=== PATIENT | female | born 1970 | race Caucasian/White ===

== ENCOUNTER 2017-04-30 07:32 | Emergency (ER) | payer OTHER ==
[~2017-04-30] VITALS: Ht 149.9 cm; Wt 59.0 kg
--- NOTE | ~2017-04-30 | CT4 ---
[facility] A Service of [facility] & [facility] RADIOLOGY TEXT RESULTS PATIENT: SABAS NIETO LOCATION: [facility] : 72 UNIT #: [id number] AGE: [address]: Yari Encinas APRN SEX: F ORDER DR: [id number] [facility] [address] [place], [place] [address] [id number] E MR#: [id number] Acc #: [id number] NAME: SABAS NIETO : 1970 SEX: F STUDY DATE/TIME: 04/30/2017 11:02 UNIT: [facility] ROOM: STUDY DESCRIPTION: CT Abd and Pelv Wo Cont Attending Physician: Yari Encinas A.P.R.N. Ordering Physician: Dorian Spencer M.D. Primary Care Physician: Mk Pan M.D. MEDICAL IMAGING REPORT This report is preliminary unless electronic signature is present EXAM CT abdomen and pelvis without contrast, 04/30/2017, 1102 hours. COMPARISON 06/20/2009 CLINICAL HISTORY 47-year-old woman complaining of lower abdominal pain for 4 days with vomiting for 2 days. TECHNIQUE Helical noncontrasted images were obtained from the lung bases through the pubic symphysis without oral or intravenous contrast. Sagittal and coronal reconstructions were performed. Total exam DLP 597 mGy-cm. This CT exam was performed with one or more of the following radiation dose reduction techniques: automatic exposure control, adjustment of mA and/or kV according to patient size, and iterative reconstruction. FINDINGS Images through the lung bases demonstrate very mild dependent linear density likely atelectasis. There is no effusion. The distal esophagus is normal. The liver, spleen, pancreas, gallbladder and bile ducts appear normal. The adrenal glands are normal. Kidneys are remarkable for a punctate nonobstructing stone in the posterior mid-right kidney. There is no pelvocaliectasis or ureterectasis. There are bilateral pelvic phleboliths with no definite ureteral calculi. The bladder is moderately well-distended but no wall thickening is seen. The stomach is contracted. Small bowel demonstrates a few distended loops in the anterior left upper quadrant, but the distal small bowel is nondilated. The colon demonstrates a small to moderate amount of stool STS. [facility] A Service of [facility] RADIOLOGY TEXT RESULTS PATIENT: SABAS NIETO LOCATION: [facility] : 72 UNIT #: [id number] AGE: [address]: Yari Encinas APRN SEX: F ORDER DR: with no colonic distension or wall thickening. CT pelvis demonstrates a normal appearance to the uterus and adnexa. There is no pelvic free fluid. IMPRESSION 1. No definite acute findings in the abdomen or pelvis. There is a punctate nonobstructing stone in the posterior mid-right kidney. No ureteral calculus seen. 2. There are a few mildly prominent loops of small bowel in the anterior left mid abdomen without wall thickening. The small bowel proximal and distal to this appears normal, and this is likely simply due to peristalsis. An obstructive pattern is not seen. The colon is nondistended. No colonic wall thickening. 2. Distended bladder. Negative CT pelvis. Dictated by... Bethanie Andre M.D. THIS IS AN ELECTRONICALLY VERIFIED REPORT Bethanie Andre M.D. at 05/01/2017 12:32 PM Tha TD: 04/30/2017 22:14 JOB #: [id number] MEDICAL IMAGING REPORT Page 1 of 1 COPY
[~2017-04-30 07:32] MED LIST: DOCUSATE SODIU100 MG PO; LORTAB 5-325 M1 EACH PO; NEURONTIN600 MG PO; PRILOSEC PO
[2017-04-30 08:29] LABS: BASOPHIL# 0.1 X10e3 (0-0.3); BASOPHIL% 0.5 % (0-2.5); DIFF IND NO; EOSINOPHIL# 0.2 X10e3 (0-0.7); EOSINOPHIL% 1.4 % (0.0-7.0); HEMATOCRIT 40.7 % (35.0-45.0); HEMOGLOBIN 13.9 gm/dL (12.0-16.0); LYMPHOCYTE# 2.5 X10e3 (1.0-3.5); LYMPHOCYTE% 22.2 % (17.0-45.0); MEAN CELL VOLUME 92.5 FL (83-96); MEAN CORPUSCULAR HEMOGLOBIN 31.6 PG (28-34); MEAN CORPUSCULAR HGB CONC 34.1 g/dL (30-36); MEAN PLATELET VOLUME 6.3 FL (6.5-11.5); MONOCYTE# 1.2 X10e3 (0-1.0); MONOCYTE% 11.1 % (3.0-12.0); NEUTROPHIL# 7.2 X10e3 (1.5-7.1); NEUTROPHIL% 64.8 % (40-75); PLATELET COUNT 380 X10e3 (140-420); RED CELL DISTRIBUTION WIDTH 14.2 % (11.0-15.5); WHITE BLOOD COUNT 11.2 X10e3 (4.0-10.5)
[2017-04-30 08:34] LABS: URINE SOURCE CLEAN CATCH
[2017-04-30 08:38] LABS: POC - CKMB <1.0 ng/mL (0.0-7.9); POC - TROPONIN <0.05 ng/mL (<=0.05)
[2017-04-30 08:50] LABS: URINE APPEARANCE CLEAR; URINE BILIRUBIN NEG (NEG); URINE BLOOD NEG (NEG); URINE COLOR YELLOW; URINE GLUCOSE NEG (NEG); URINE KETONE NEG (NEG); URINE LEUKOCYTE ESTERASE 1+ (NEG); URINE NITRATE NEG (NEG); URINE PROTEIN TRACE (NEG); URINE SPECIFIC GRAVITY 1.014 (1.003-1.035); URINE UROBILINOGEN 0.2 MG/DL (NEG)
[2017-04-30 08:52] LABS: CULTURE INDICATED? YES; URINE BACTERIA AUWI NEG (NEGATIVE); URINE SQUAMOUS EPITHELIAL CELL MOD /[HPF]
[2017-04-30 09:02] LABS: ALBUMIN SERUM 4.2 g/dL (3.5-5.0); ALKALINE PHOSPHATASE 48 U/L (32-92); ALT (SGPT) 12 U/L (10-40); AMYLASE 25 U/L (0-46); AST (SGOT) 16 U/L (10-42); BILIRUBIN,TOTAL 0.5 mg/dL (0.2-2.0); BLOOD UREA NITROGEN 13 mg/dL (9-23); CALCIUM SERUM 9.1 mg/dL (8.4-10.2); CARBON DIOXIDE 22 mmol/L (22-31); CHLORIDE 107 mmol/L (100-111); CREATININE SERUM 1.3 mg/dL (0.6-1.4); GLOM FILT RATE Estimated 49.2 mL/min (>60); GLUCOSE FASTING 106 mg/dL (70-110); LIPASE 18 U/L (22-51); POTASSIUM 3.5 mmol/L (3.5-5.1); PROTEIN TOTAL SERUM 7.6 g/dL (6.0-8.3); SODIUM 138 mmol/L (135-145)
[2017-04-30 09:05] LABS: BILIRUBIN, DIRECT <0.1 mg/dL (0.0-0.2); BILIRUBIN,INDIRECT 0.4 mg/dL (0.0-0.9)
[2017-04-30 09:11] LABS: URBCS1 AUWI NEG /[HPF] (0-2); URINE YEAST PRESENT
[2017-04-30 09:45] LABS: AMPHETAMINE POS (NEG); BARBITURATES NEG (NEG); BENZODIAZEPINES NEG (NEG); COCAINE POS (NEG); MARIJUANA NEG (NEG); OPIATES POS (NEG); TRICYCLIC ANTIDEPRESSANTS NEG (NEG); U METHADONE NEG (NEG)
[2017-05-03 21:51] LABS: CHLAMYDIA TRACH Not Detected (Not Detected); N GONOR Not Detected (Not Detected)
== END 2017-04-30 12:04 | disposition home or self-care (01) ==
LOC: CED 07:32
PROVIDERS: Nurse Practitioner
DX: R10.31 Right lower quadrant pain (principal); R10.32 Left lower quadrant pain; R11.2 Nausea with vomiting, unspecified; F32.9 Major depressive disorder, single episode, unspecified; F19.10 Other psychoactive substance abuse, uncomplicated; R06.02 Shortness of breath; R05 Cough; F41.9 Anxiety disorder, unspecified; G62.9 Polyneuropathy, unspecified; Z98.51 Tubal ligation status; F17.210 Nicotine dependence, cigarettes, uncomplicated
CPT/HCPCS: 36415; 74176; 80048; 80076; 80307; 81003; 82150; 82553; 83690; 84484; 84703; 85025; 87086; 87491; 87591; 87808; 87905; 96361; 96374; 96375; 99284; J2270; J2405

== ENCOUNTER 2017-05-13 03:18 | Emergency (ER) | payer OTHER ==
[~2017-05-13] VITALS: Ht 149.9 cm; Wt 56.7 kg
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
[2017-05-13] MEDS ORDERED: NO MEDICATIONS (03:29)
== END 2017-05-13 06:06 | disposition home or self-care (01) ==
LOC: SED 03:18
DX: S01.511A Laceration without foreign body of lip, initial encounter (principal); S16.1XXA Strain of muscle, fascia and tendon at neck level, initial encounter; S05.01XA Injury of conjunctiva and corneal abrasion without foreign body, right eye, initial encounter; S00.81XA Abrasion of other part of head, initial encounter; F17.200 Nicotine dependence, unspecified, uncomplicated; Y04.0XXA Assault by unarmed brawl or fight, initial encounter; Y92.009 Unspecified place in unspecified non-institutional (private) residence as the place of occurrence of the external cause
CPT/HCPCS: 12011; 70450; 70486; 72125; 90471; 90715; 99283